=== PATIENT | female | born 1980 | race Two or more races ===

== ENCOUNTER 2020-08-18 09:46 | Emergency (ER) | payer MEDICAID ==
[~2020-08-18] VITALS: Ht 160 cm; Wt 84.0 kg
[2020-08-18 09:57] VITALS: BP 108/69
[2020-08-18] MEDS ORDERED: ALBU6.7H9 IH (10:01)
[2020-08-18] MEDS ORDERED: ACETAMINOPHEN 325MG TABLET PO ONE (11:15)
[2020-08-18] MEDS ORDERED: HYDR-4346 MT (12:50)
[2020-08-18] MEDS ORDERED: NAPR-1176 MT (12:50)
[2020-08-18] MEDS ORDERED: HYDROCODONE/ACETAMINOPHEN 5/325MG TABLET PO ONE (13:00)
== END 2020-08-18 14:00 | disposition home or self-care (01) ==
LOC: ER 09:46
DX: S82.892A Other fracture of left lower leg, initial encounter for closed fracture (principal); W18.49XA Other slipping, tripping and stumbling without falling, initial encounter; Y93.89 Activity, other specified; Y92.89 Other specified places as the place of occurrence of the external cause
CPT/HCPCS: 29515; 73610; 73630; 99284